=== PATIENT | female | born 1975 | race Caucasian/White ===

== ENCOUNTER → 2016-10-02 | Outpatient (CLI) | payer OTHER | LOC: FIMAGING 09:23 | PROVIDERS: ATTEND Surgery | DX: R10.31 Right lower quadrant pain (principal); R10.32 Left lower quadrant pain ==

== ENCOUNTER 2017-01-07 20:56 | Emergency (ER) | payer OTHER ==
[2017-01-07 21:09] VITALS: RESP 18; TEMP 98.2
--- NOTE | 2017-01-07 21:19 | CPEKG ---
Heart Rate: 83 RR Interval: 723 P-R Interval: 188 QRSD Interval: 84 QT Interval: 384 QTC Interval: 452 P [place]: 42 QRS [place]: -11 T Wave [place]: 25 EKG Severity - NORMAL ECG - EKG Impression: SINUS RHYTHM Electronically Signed By: Betty Mari 08-Jan-2017 00:28:02
--- NOTE | 2017-01-07 21:22 | EDPHY ---
H & P Stated Complaint: Chest pain HPI/ROS: CHIEF COMPLAINT: Chest pain HISTORY OF PRESENT ILLNESS: This patient is a 41 year old female complaining of upper left chest pain onset one hour ago while sitting and talking. The pain feels sharp, and waxes and wanes. There is no radiation, and she denies shortness of breath. The pain is not pleuritic. She states she feels something in her chest is "flipping". She endorses minimal cough, and some soreness in her left shoulder. She denies nausea, recent fever, or other associated symptoms. Personal cardiac risk factors include diabetes and hypertension. No tobacco use.. She is adopted, does not know her family history. REVIEW OF SYSTEMS: A ten point review of systems was performed and is negative with the exception of the items mentioned in the HPI. - Personal History Current Tetanus/Diphtheria Vaccine: Yes Current Tetanus Diphtheria and Acellular Pertussis (TDAP): Yes - Medical/Surgical History PMH: 1.Hypertension (Losartan-HCTZ) 2. Diabetes mellitus (Metformin) 3. GERD (Protonix) Hx Asthma: Yes Hx Chronic Respiratory Disease: No Hx Diabetes: Yes Hx Cardiac Disease: No Hx Renal Disease: No Hx Cirrhosis: No Hx Alcoholism: No Hx HIV/AIDS: No Hx Splenectomy or Spleen Trauma: No Other PMH: asthma, DM, HTN, GERD. - Social History Smoking Status: Never smoked Additional Social History: Nonsmoker. Family at bedside. She is , not currently working. - Physical Exam Exam: General Appearance: Alert. Vital signs reviewed. BP 143/88. Eyes: Pupils equal and round, no conjunctival injection, no discharge. Anicteric. ENT, Mouth: Mucous membranes are moist, no oropharyngeal erythema or edema. Neck: No lymphadenopathy, supple. Respiratory: Lungs are clear to auscultation; no wheezes, rales, or rhonchi. Cardiovascular: Regular rate and rhythm; no murmur, rub, or gallop. Gastrointestinal: Abdomen is soft and nontender, no masses or organomegaly, bowel sounds normal. Skin: Warm and dry, no rashes on exposed skin, normal color. Back: Nontender to palpation over the thoracolumbar spine. No CVAT. Extremities: No lower extremity edema, no calf tenderness or swelling. Neurological: Alert and oriented. Moving all four extremities easily and equally. Psychiatric: Normal affect. Constitutional: Initial Vital Signs Temperature (C) 36.8 C 01/07/17 21:07 Heart Rate 98 01/07/17 21:07 Respiratory Rate 18 01/07/17 21:07 Blood Pressure 143/88 H 01/07/17 21:07 O2 Sat (%) 98 01/07/17 21:07 O2 Delivery Mode Room Air Allergies/Adverse Reactions: acetaminophen [From Percocet] Allergy (Verified 02/29/16 03:54) oxycodone HCl [From Percocet] Allergy (Verified 02/29/16 03:54) Home Medications: Medication Instructions Recorded Albuterol 02/29/16 Glipizide 02/29/16 Losartan Potassium 02/29/16 Metformin HCl 02/29/16 Wellbutrin Sr 02/29/16 Medical Decision Making - Diagnostics Imaging: I viewed and interpreted images myself ED Course/Re-evaluation: Plan for EKG, chest x-ray. Plan for labs including CBC, BMP, D-dimer, and troponin. Administered 325mg PO Aspirin. Labs unremarkable. EKG normal. Chest x-ray negative for acute processes. She understands that a single troponin, one hour from symptom onset, will not rule out ACS. HEART score is one, with risk of major cardiac event in six weeks calculated as being under 1.7%. I do not feel that she needs admission for rule -out. She will follow up with PCP for further risk stratification. Danger signs reviewed. Plan to discharge home in good condition. Return precautions discussed. The patient will follow up with her primary care provider. She is comfortable with this plan. Differential Diagnosis: I considered ddx of ACS, PE, pneumonia or other infectious process, pneumothorax. - Data Points Laboratory Results: Laboratory Results 01/07/17 21:21 01/07/17 21:21 Medications Given: Discontinued Medications Aspirin (Aspirin) 324 mg PO EDNOW ONE Stop: 01/07/17 21:36 Last Admin: 01/07/17 21:54 Dose: 324 mg Departure - Departure Disposition: Home, Routine, Self-Care Clinical Impression: Chest pain Qualifiers: Chest pain type: other chest pain Qualified Code(s): R07.89 - Other chest pain ; R07.8 - Other chest pain Condition: Good Instructions: Chest Pain (ED) Additional Instructions: 1. Follow up with your primary care provider for symptoms unresolved. 2. Return to the emergency department if you develop shortness of breath, worsening chest pain, fever, or other worsening of condition. Referrals: Liliane Wheeler MD [Primary Care Provider] - As per Instructions Report Scribed for: Betty Mari Report Scribed by: Mariam Hernandez Date of Report: 01/07/17 Time of Report: 21:43 Physician Review and Approval Statement: 01/07/17 21:22 Portions of this note were transcribed by the medical consultant. I, Dr. Betty Mari, personally performed the history, physical exam, and medical decision- making; and confirmed the accuracy of the information in the transcribed note.
[2017-01-07] MEDS ORDERED: ASPIRIN 81 MG CHEWABLE TAB PO ONE (21:35)
[2017-01-07 21:41] LABS: % IMMATURE GRANULYOCYTES 1.2 % (0.0-1.1); ABSOLUTE IMMATURE GRANULOCYTES 0.11 10^3/uL (0.00-0.10); ADD DIFF? NO; ADD MORPH? NO; ADD SCAN? NO; ATYPICAL LYMPHOCYTE FLAG 0 (0-99); FRAGMENT RBC FLAG 0 (0-99); HEMOGLOBIN 14.1 g/dL (12.6-16.3); LEFT SHIFT FLG 20 (0-99); LIPEMIA HEMOLYSIS FLAG 90 (0-99); MEAN CELL HEMOGLOBIN 30.2 pg (27.9-34.1); MEAN CELL HEMOGLOBIN CONCENTR. 34.4 g/dL (32.4-36.7); MEAN CELL VOLUME 87.8 fL (81.5-99.8); MEAN PLATELET VOLUME 9.9 fL (8.7-11.7); PLATELET CLUMPS FLAG 0 (0-99); PLATELET COUNT 271 10^3/uL (150-400); RED BLOOD CELL COUNT 4.67 10^6/uL (4.18-5.33); RED CELL DISTRIBUTION WIDTH 13.1 % (11.5-15.2)
[2017-01-07 21:53] LABS: ANION GAP 11 mEq/L (8-16); CALCIUM 10.1 mg/dL (8.5-10.4); CARBON DIOXIDE 26 mEq/l (22-31); CHLORIDE 100 mEq/L (97-110); CREATININE 0.9 mg/dL (0.6-1.0); GLOMERULAR FILTRATION RATE > 60; GLUCOSE 176 mg/dL (70-100); POTASSIUM 4.1 mEq/L (3.5-5.2); SODIUM 137 mEq/L (134-144)
[2017-01-07 22:04] LABS: TROPONIN I < 0.012 ng/mL (0-0.034)
[2017-01-07 22:58] VITALS: BP 102/68; PULSE 81; O2SAT 94
== END 2017-01-07 22:57 | disposition home or self-care (01) ==
DX: R07.89 Other chest pain (principal); I10 Essential (primary) hypertension; E11.9 Type 2 diabetes mellitus without complications; J45.909 Unspecified asthma, uncomplicated; Z79.84 Long term (current) use of oral hypoglycemic drugs

== ENCOUNTER 2018-05-15 19:05 | Emergency (ER) | payer OTHER ==
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
[2018-05-15] MEDS ORDERED: KETOROLAC 30 MG/1 ML SDV IVP ONE (19:54)
[2018-05-15] MEDS ORDERED: NS 1,000 ML IV ONE (19:54)
[2018-05-15 20:05] LABS: PLATELET COUNT 294 10^3/uL (150-400)
[2018-05-15] MEDS ORDERED: IOPAMIDOL (ISOVUE-300) 100 ML BTL ONE (20:07)
[2018-05-15 20:18] LABS: INR 0.91 (0.83-1.16); PROTIME(PATIENT) 12.5 SEC (12.0-15.0)
[2018-05-15 22:20] VITALS: BP 136/60
== END 2018-05-15 22:20 | disposition home or self-care (01) ==
DX: R31.9 Hematuria, unspecified (principal); E86.9 Volume depletion, unspecified; E11.9 Type 2 diabetes mellitus without complications; I10 Essential (primary) hypertension; J45.909 Unspecified asthma, uncomplicated; K21.9 Gastro-esophageal reflux disease without esophagitis; F32.9 Major depressive disorder, single episode, unspecified; V89.1XXA Person injured in unspecified nonmotor-vehicle accident, nontraffic, initial encounter; Y92.9 Unspecified place or not applicable; Y93.9 Activity, unspecified
CPT/HCPCS: 82435-PO; 82565-PO; 82947-PO; 84132-PO; 84295-PO; 84520-PO; 85014-PO; 96374; J1885; Q9967